=== PATIENT | male | born 1975 | race Two or more races ===

== ENCOUNTER 2020-05-24 06:51 | Outpatient (REF) | payer OTHER, SELFPAY | END 2020-05-24 06:52 | disposition home or self-care (01) | LOC: HO.LAB 06:51 | PROVIDERS: Visit Provider Internal Medicine | DX: Z20.828 Contact with and (suspected) exposure to other viral communicable diseases (principal) | CPT/HCPCS: 87635 ==

== ENCOUNTER 2020-05-29 06:46 | Outpatient (REF) | payer OTHER, SELFPAY | END 2020-05-29 06:47 | disposition home or self-care (01) | LOC: HO.LAB 06:46 | PROVIDERS: Visit Provider Internal Medicine | DX: Z20.828 Contact with and (suspected) exposure to other viral communicable diseases (principal) | CPT/HCPCS: U0003 ==

== ENCOUNTER 2020-06-02 09:01 | Outpatient (REF) | payer OTHER, SELFPAY ==
[2020-06-02 09:19] LABS: COVID-19 Test Negative (Negative)
== END 2020-06-02 09:02 | disposition home or self-care (01) ==
LOC: HO.LAB 09:01
PROVIDERS: Visit Provider Internal Medicine
DX: Z20.828 Contact with and (suspected) exposure to other viral communicable diseases (principal)
CPT/HCPCS: 87635; C9803